=== PATIENT | female | born 1980 | race Caucasian/White ===

== ENCOUNTER 2020-01-29 17:17 | Emergency (ER) | payer BC, SELFPAY ==
--- NOTE | ~2020-01-29 | US_ITS ---
EXAMINATION: US OB <=14 wk fetus w TV DATE: 01/29/2020 18:39 INDICATION: Bleeding and cramping during first trimester TECHNIQUE: Real-time pelvic transabdominal and transvaginal ultrasound was performed. COMPARISON: None. FINDINGS: The uterus measures 8.2 x 4.8 x 5.5 cm. No intrauterine gestational sac is identified. The endometrial thickness measures 13 mm. The right ovary measures 2.0 x 2.2 x 1.7 cm. The left ovary measures 3.0 x 1.5 x 1.6 cm. There is nor mal vascular flow in the ovaries. There is no free fluid in the pelvis. IMPRESSION: 1. of unknown location. Although no intrauterine gestational sac is seen, this may be due t o early gestation. If the patient is clinically stable, recommend followup with serial beta-hCG and u ltrasound. Reviewed, dictated and finalized at location A. IMPRESSION: 1. of unknown location. Although no intrauterine gestational sac is s een, this may be due to early gestation. If the patient is clinically stable, r ecommend followup with serial beta-hCG and ultrasound.
[2020-01-29 17:21] VITALS: BP 119/98; PULSE 79; RESP 16; TEMP 37.1; O2SAT 100
[2020-01-29 17:33] LABS: Basophils Absolute Auto 0.1 K/mm3 (0.0-0.1); Basophils Percent Auto 0.7 % (0.2-1.2); Eosinophils Absolute Auto 0.3 K/mm3 (0-0.3); Eosinophils Percent Auto 3.3 % (0-4.4); Hematocrit 39.4 % (37.0-47.0); Hemoglobin 13.1 g/dL (12.0-15.0); Immature Granulocyte Absolute 0.02 K/mm3 (0.00-0.031); Immature Granulocyte Percent A 0.2 % (0-0.5); Lymphocytes Absolute Auto 2.09 K/mm3 (0.9-3.2); Mean Corpuscular HGB Conc 33.2 g/dl (32-36); Mean Corpuscular Hemoglobin 29.4 pg (26-34); Mean Corpuscular Volume 88.3 fl (80-100); Monocytes Absolute Auto 0.5 K/mm3 (0.1-0.6); Monocytes Percent Auto 5.5 % (2.6-8.5); Neutrophils Absolute Auto 5.8 K/mm3 (1.3-6.7); Neutrophils Percent Auto 66.3 % (45.5-73.1); Platelet Count Result 212 k/mm3 (150-375); Red Blood Count 4.46 M/mm3 (4.2-5.4); Red Cell Distribution Width 12.6 % (11.5-14.5); White Blood Count 8.7 K/mm3 (4.5-10.0)
[2020-01-29 17:43] VITALS: BP 112/66; PULSE 77
[2020-01-29 17:44] VITALS: BP 105/76; PULSE 73
[2020-01-29 17:47] VITALS: BP 111/80; PULSE 89
--- NOTE | 2020-01-29 19:34 | PC.NURSE ---
assumed care of pt at this time, received report from ishaan faith
--- NOTE | 2020-01-29 19:44 | ED.ABDPAIN ---
HPI - Abdominal Pain General Chief Complaint: Vaginal Bleeding Stated Complaint: possible misscarriage Time Seen by Provider: 01/29/20 18:13 Source: patient and family Mode of arrival: ambulatory Limitations: no limitations History of Present Illness HPI narrative: Patient is a 39-year-old female who presents to emergency department for evaluation of pelvic cramping that began last night followed by the passing of blood vaginally today patient is currently per last menstrual period at approximately 7 weeks. Patient has not seen her can marker at this point did have conversation with them today instructed to come to the emergency department patient notes cramping in the lower pelvic region at this time is mild in nature. Patient denies fever chills nausea vomiting. Patient is G1, P0. Patient has not had an ultrasound at this point. Review of Systems Review of Systems: All systems reviewed & are unremarkable except as noted in HPI and below PMFSH Family History Family History (Updated 02/02/16 @ 23:19 by DOCTOR UNKNOWN) Sibling Family history of diabetes mellitus in first degree relative Family history of malignant neoplasm of thyroid Social History Social History Smoking status: Never smoker Alcohol intake: current Exam Narrative: Exam Narrative: GENERAL: Well-appearing, well-nourished, and in no acute distress. HEAD: Normocephalic, atraumatic. EYES: PERRLA and EOMI. ENT: Nares clear, no rhinorrhea or epistaxis. Mucous membranes moist. CHEST: Clear to auscultation. No respiratory distress. No wheezes rales or rhonchi HEART: Regular rate and rhythm. No murmur heard. Normal peripheral pulses. ABDOMEN: Soft, nontender, nondistended EXTREMITIES: Normal range of motion. No edema. SKIN: Warm, dry, no rash. NEURO: No focal deficits. Alert and oriented x3. PSYCH: Normal mood and affect. Course Course Emergency Course: Patient in the room in no distress aware of case findings treatment plan and diagnosis hemodynamically stable no high risk changes in the blood work or imaging patient is aware of case findings treatment plan ultrasound findings and discussion with her can marker and agrees to follow with can marker on Friday Consultations Consultation #1: Discussed case with patient's can marker who will be following the patient in clinic on Friday patient to be given reasons to return Date: 01/29/20 Time: 19:47 Vital Signs Vital signs: Vital Signs Temperature 98.8 F 01/29/20 17:21 Pulse Rate 79 01/29/20 17:21 Respiratory Rate 16 01/29/20 17:21 Blood Pressure 119/98 H 01/29/20 17:21 Pulse Oximetry 100 01/29/20 17:21 Temperature 98.8 F 01/29/20 17:21 Pulse Rate 89 01/29/20 17:47 Respiratory Rate 16 01/29/20 17:21 Blood Pressure 111/80 01/29/20 17:47 Pulse Oximetry 100 01/29/20 17:21 MDM - Abdominal Pain MDM Narrative Medical decision making narrative: Patient in the room at this time resting comfortably aware of case findings treatment plan and diagnosis agreeing to follow-up with her can marker on Friday was given instructions on reasons to return. Patient hemodynamically stable at this time resting comfortably felt appropriate for outpatient reevaluation Lab Data Result diagrams: 01/29/20 17:25 Labs: Lab Results 01/29/20 01/29/20 01/29/20 Range/Units 17:25 17:25 17:25 WBC 8.7 (4.5-10.0) K/mm3 RBC 4.46 (4.2-5.4) M/mm3 Hgb 13.1 (12.0-15.0) g/dL Hct 39.4 (37.0-47.0) % MCV 88.3 (80-100) fl MCH 29.4 (26-34) pg MCHC 33.2 (32-36) g/dl RDW 12.6 (11.5-14.5) % Plt Count 212 (150-375) k/mm3 MPV 11.0 H (7.4-10.4) fl Immature Gran % (Auto) 0.2 (0-0.5) % Neut % (Auto) 66.3 (45.5-73.1) % Lymph % (Auto) 24.0 (18.3-44.2) % [place] % (Auto) 5.5 (2.6-8.5) % Eos % (Auto) 3.3 (0-4.4) % Baso % (Auto) 0.7 (0.2-1.2) %
[2020-01-29 20:03] VITALS: BP 114/86; PULSE 74; RESP 16; O2SAT 99
== END 2020-01-29 20:04 | disposition home or self-care (01) ==
PROVIDERS: Emergency Provider Emergency Medicine
DX: O20.9 Hemorrhage in early pregnancy, unspecified (principal); Z3A.01 Less than 8 weeks gestation of pregnancy
CPT/HCPCS: 36415; 76801; 76817; 84702; 85025; 85461; 99284